=== PATIENT | female | born 1955 | race Asian ===

== ENCOUNTER 2017-04-11 08:03 | Day surgery (SDC) | payer OTHER | END 2017-04-11 10:02 | disposition home or self-care (01) | LOC: OR 08:03 | PROC: 08RK3JZ Replacement of Left Lens with Synthetic Substitute, Percutaneous Approach (ICD-10-PCS; principal; 2017-04-11) | DX: H25.812 Combined forms of age-related cataract, left eye (principal) | CPT/HCPCS: 66984; V2632 ==